=== PATIENT | male | born 1935 | race Caucasian/White ===

== ENCOUNTER → 2018-12-24 | Outpatient (CLI) | payer MEDICARE, OTHER ==
[~2018-12-24] VITALS: Ht 188 cm; Wt 86.0 kg
[~2018-12-24] MED LIST: ANTIVERT 12.512.5 MG PO; ASPIRIN 81M81 MG/TA2 PO; FLONASE NASAL S16 GM NS; GLUCOPHAGE500 MG/TAB PO; HCTZ; IBUPROFEN400 MG PO; LEVOTHYROXIN0.075 MG PO; OCUVITE1 TA1 PO; SINGULAIR10 MG PO; STRESS B COMPLEX; ZESTRIL 10MG10 MG PO
[2018-12-24 09:32] VITALS: BP 157/90; PULSE 74
[2018-12-24 10:18] VITALS: BP 154/76; PULSE 62
--- NOTE | 2018-12-24 10:30 | NUR ---
Discharge instructions gone over with pt. Verbalized understanding of instructions. Copy of instructions given to pt. Pt denies pain at this time. 1040 Pt out to car per wheelchair. Pt able to walk without difficulty. Pt up and into car without assistance.
== END ==
LOC: COL.RAD 08:41
DX: M51.36 Other intervertebral disc degeneration, lumbar region (principal)
CPT/HCPCS: J3301

== ENCOUNTER → 2019-02-25 | Outpatient (CLI) | payer MEDICARE, OTHER ==
[~2019-02-25] VITALS: Ht 188 cm; Wt 85.2 kg
[~2019-02-25] MED LIST changes: +FLEXERIL 1010 MG/TAB PO; +KLONOPIN 1MG1 MG PO; +PREDNISONE10 MG PO; +PREVACID 30MG30 M1 PO; +ULTRAM 50MG TAB50 MG PO
[2019-02-25 07:25] VITALS: BP 154/82; PULSE 92
[2019-02-25 08:14] VITALS: BP 154/80; PULSE 68
--- NOTE | 2019-02-25 08:30 | NUR ---
PT TAKEN TO FRONT LOBBY IN WHEELCHAIR AND THEN OUT TO THE CAR. DRIVES HOME
== END ==
LOC: COL.RAD 06:53
DX: M51.16 Intervertebral disc disorders with radiculopathy, lumbar region (principal)
CPT/HCPCS: J3301

== ENCOUNTER → 2022-01-31 | Outpatient (CLI) | payer MEDICARE, OTHER ==
[~2022-01-31] MED LIST changes: +ADVIL200 MG PO; +ARTIFICIAL TEAR15 M7 OP; +COREG 6.256.25 MG/TA PO; -IBUPROFEN400 MG PO; +LIPITOR 40MG TA40 MG PO; +MICARDIS40 MG PO; +MULTIPLE VITAMI1 TA1 PO; +PLAVIX 75MG TAB75 MG PO; -STRESS B COMPLEX; +STRESS B COMPLEX PO; +SYNTHROID0.075 MG/T PO; +VITAMIN D250 MCG PO
== END ==
LOC: COL.RAD 13:40
DX: I65.23 Occlusion and stenosis of bilateral carotid arteries (principal)
CPT/HCPCS: Q9967

== ENCOUNTER 2022-02-01 14:07 | Observation (INO) | payer MEDICARE, OTHER ==
[~2022-02-01] VITALS: Ht 188 cm; Wt 85.6 kg
[~2022-02-01 14:07] MED LIST changes: -ARTIFICIAL TEAR15 M7 OP; -COREG 6.256.25 MG/TA PO; -LIPITOR 40MG TA40 MG PO; -MICARDIS40 MG PO; -MULTIPLE VITAMI1 TA1 PO; -PLAVIX 75MG TAB75 MG PO; -SYNTHROID0.075 MG/T PO; -VITAMIN D250 MCG PO
[2022-02-01 14:35] LABS: BASO # 0.1 K/mm3 (0.0-0.2); BASO % 0.7 % (0.0-2.0); EOS # 0.5 K/mm3 (0.0-0.7); EOS % 3.9 % (0.0-4.0); GRAN # 9.8 K/mm3 (1.4-6.5); GRAN % 80.8 % (42.2-75.2); HEMATOCRIT 44.4 % (42.0-52.0); HEMOGLOBIN 15.1 g/dl (13.5-18.0); LYMPH # 0.9 K/mm3 (1.2-3.4); LYMPH % 7.7 % (20.0-51.0); MEAN CELL VOLUME 88 fl (80.0-100.0); MEAN CORPUSCULAR HEMOGLOBIN 30 pg (27-31); MEAN CORPUSCULAR HGB CONC 34 g/dl (33.0-37.0); MEAN PLATELET VOLUME 10.4 fl (7.4-10.4); MONO # 0.8 K/mm3 (0.1-0.6); MONO % 6.4 % (1.7-9.3); PLATELET COUNT 239 K/mm3 (130-400); RED BLOOD COUNT 5.02 M/mm3 (4.20-5.60); REDCELL DISTRIBUTION WIDTH-CV 12.7 % (11.5-14.5)
[2022-02-01 14:56] LABS: ALBUMIN 3.7 gm/dL (3.4-4.8); ANION GAP 13 mmol/L (7-16); BLOOD UREA NITROGEN 20 mg/dL (8-26); CARBON DIOXIDE 22 mmol/L (23-31); CHLORIDE 104 mmol/L (98-107); CREATININE, serum 1.11 mg/dL (0.72-1.25); GLUCOSE 187 mg/dL (70-99); PHOSPHOROUS 2.5 mg/dL (2.3-4.7); SODIUM 139 mmol/L (136-145)
[2022-02-01 15:14] LABS: TROPONIN-I < 0.010 ng/mL (0.00-0.033)
[2022-02-01] MEDS ORDERED: ARTIFICIAL TEAR15 M7 OP (19:26)
[2022-02-01] MEDS ORDERED: SYNTHROID0.075 MG/T PO (19:29)
[2022-02-01] MEDS ORDERED: MULTIPLE VITAMI1 TA1 PO (19:31)
[2022-02-01] MEDS ORDERED: MICARDIS40 MG PO (19:32)
[2022-02-01 19:40] LABS: PARTIAL THROMBOPLASTIN TIME 27.7 SECONDS (26.0-37.0)
[2022-02-01 22:00] VITALS: BP 150/76; PULSE 76; TEMP 99.3
--- NOTE | 2022-02-01 22:22 | NUR ---
Patient arrived to medical unit from ER at shift change. This nurse assessed patient at approximately 1915. Alert and oriented x 4, and able to make needs known. Denies having pain and discomfort at this time. Peripheral INT to right AC. Started Heparin drip per orders. Dr. Suero notified of consult and saw patient. Plan for MRI on Friday. Patient voices no questions, needs, or concerns at this time. In bed with call light within reach.
[2022-02-02] VITALS (7 sets, daily range): BP systolic 124–163; BP diastolic 53–67; PULSE 59–71; TEMP 97.2–98.4
--- NOTE | 2022-02-02 05:51 | NUR ---
Continues on Heparin drip per orders. 0200 HepXa was goal. Recheck to be done at 0800. Denies pain and discomfort at this time. Voices no questions, needs, or concerns at this time. In bed with call light within reach.
--- NOTE | 2022-02-02 08:00 | NUR ---
Patient is resting in bed, alert and oriented x 4, with HTN. No chest pain. Telemetry in place, NSR. Hep gtt at 10 ml/hr. Assessment completed, meds provided. No other needs at this time. Call light within reach.
[2022-02-02 08:09] LABS: BASO # 0.1 K/mm3 (0.0-0.2); BASO % 1.1 % (0.0-2.0); EOS # 0.6 K/mm3 (0.0-0.7); HEMATOCRIT 45.4 % (42.0-52.0); HEMOGLOBIN 15.3 g/dl (13.5-18.0); LYMPH % 10.4 % (20.0-51.0); MEAN CELL VOLUME 89 fl (80.0-100.0); MEAN CORPUSCULAR HEMOGLOBIN 30 pg (27-31); MEAN CORPUSCULAR HGB CONC 34 g/dl (33.0-37.0); MEAN PLATELET VOLUME 10.3 fl (7.4-10.4); MONO # 0.8 K/mm3 (0.1-0.6); MONO % 8.2 % (1.7-9.3); PLATELET COUNT 233 K/mm3 (130-400); RED BLOOD COUNT 5.13 M/mm3 (4.20-5.60); REDCELL DISTRIBUTION WIDTH-CV 12.8 % (11.5-14.5)
--- NOTE | 2022-02-02 08:19 | NUR ---
2ND GOAL FOR HEP GTT, no changes, next draw 02/03/22 6053
[2022-02-02 08:25] LABS: ALBUMIN 3.7 gm/dL (3.4-4.8); CALCIUM 9.3 mg/dL (8.4-10.2); CREATININE, serum 1.14 mg/dL (0.72-1.25); MAGNESIUM 2.2 mg/dL (1.6-2.6); PHOSPHOROUS 2.9 mg/dL (2.3-4.7); POTASSIUM 3.9 mmol/L (3.5-4.5)
--- NOTE | 2022-02-02 14:52 | NUR ---
door worker met with patient to complete intake and discuss discharge plan. Patient states that he lives at home with his Marquita ([phone]) in [place]. He is independent with his ADL's and will utilize a walker when outside in the yard or a cane when he goes to the store. Patient's PCP is and he utilizes [facility] for prescriptions. Patient states that he does have a [facility] established listing his Mraquita. Patient is scheduled for a heart cath on Friday, but is planning on returning home once medically ready. Discharge plan: Home
--- NOTE | 2022-02-02 18:26 | NUR ---
Patient has been stable along the day, continues with same rate hep gtt. No chest pain. Report will be given to night RN.
--- NOTE | 2022-02-02 22:08 | NUR ---
Patient assessed around 1954. Alert and oriented, and able to make needs known. Reported some disocmfort to BLE, new order received for PRN Motrin as requested, but patient declines medication at this time. Denies SOB and dyspnea. Denies dizziness today. Denies numbness/tingling to right side of body. Denies chest pain and discomfort. Continues on Heparin drip per orders. Recheck HepXa in the morning per protocol. Voices no questions, needs, or concerns at this time. In bed with call light within reach.
[2022-02-03 03:11] VITALS: BP 147/60; PULSE 60; TEMP 97.8
--- NOTE | 2022-02-03 06:13 | NUR ---
Patient continues on Heparin drip per orders. Voices no questions, needs, or concerns at this time. In bed with call light within reach.
[2022-02-03 06:43] LABS: BASO # 0.1 K/mm3 (0.0-0.2); BASO % 0.9 % (0.0-2.0); EOS # 0.6 K/mm3 (0.0-0.7); EOS % 6.6 % (0.0-4.0); GRAN # 5.9 K/mm3 (1.4-6.5); GRAN % 69.2 % (42.2-75.2); HEMATOCRIT 44.5 % (42.0-52.0); HEMOGLOBIN 15.2 g/dl (13.5-18.0); LYMPH # 1.3 K/mm3 (1.2-3.4); LYMPH % 15.5 % (20.0-51.0); MEAN CELL VOLUME 88 fl (80.0-100.0); MEAN CORPUSCULAR HEMOGLOBIN 30 pg (27-31); MEAN CORPUSCULAR HGB CONC 34 g/dl (33.0-37.0); MONO # 0.6 K/mm3 (0.1-0.6); MONO % 7.3 % (1.7-9.3); PLATELET COUNT 232 K/mm3 (130-400); RED BLOOD COUNT 5.07 M/mm3 (4.20-5.60); REDCELL DISTRIBUTION WIDTH-CV 12.8 % (11.5-14.5)
[2022-02-03 06:57] LABS: ALBUMIN 3.6 gm/dL (3.4-4.8); CALCIUM 9.4 mg/dL (8.4-10.2); CREATININE, serum 1.19 mg/dL (0.72-1.25); MAGNESIUM 2.3 mg/dL (1.6-2.6); PHOSPHOROUS 3.2 mg/dL (2.3-4.7); POTASSIUM 4.4 mmol/L (3.5-4.5)
[2022-02-03 07:00] VITALS: BP 166/59; PULSE 60; TEMP 98
--- NOTE | 2022-02-03 07:58 | NUR ---
PT SLEEPING DURING BEDSIDE REPORT.
[2022-02-03 12:00] VITALS: BP 134/58; PULSE 62
[2022-02-03 16:00] VITALS: BP 139/62; PULSE 56
--- NOTE | 2022-02-03 19:00 | NUR ---
Report rcvd from day shift RN. The patient is laying in bed, denies any needs. No chest pain since the ED. Pt scheduled to have multiple tests tomorrow. Assessment to follow. No other concerns.
[2022-02-03 19:46] VITALS: BP 139/66; PULSE 58; TEMP 97.6
[2022-02-03] MEDS ORDERED: VITAMIN D250 MCG PO (21:18)
[2022-02-03 23:55] VITALS: BP 151/55; PULSE 59; TEMP 98
[2022-02-04] VITALS (10 sets, daily range): BP systolic 126–167; BP diastolic 57–81; PULSE 62–91; TEMP 97.6–97.9
[2022-02-04 06:32] LABS: BASO # 0.1 K/mm3 (0.0-0.2); BASO % 0.6 % (0.0-2.0); EOS # 0.5 K/mm3 (0.0-0.7); EOS % 4.7 % (0.0-4.0); GRAN # 7.1 K/mm3 (1.4-6.5); HEMATOCRIT 44.3 % (42.0-52.0); HEMOGLOBIN 15.2 g/dl (13.5-18.0); LYMPH # 1.4 K/mm3 (1.2-3.4); LYMPH % 14.2 % (20.0-51.0); MEAN CELL VOLUME 88 fl (80.0-100.0); MEAN CORPUSCULAR HEMOGLOBIN 30 pg (27-31); MEAN CORPUSCULAR HGB CONC 34 g/dl (33.0-37.0); MEAN PLATELET VOLUME 11.1 fl (7.4-10.4); MONO # 0.7 K/mm3 (0.1-0.6); MONO % 7.1 % (1.7-9.3); PLATELET COUNT 257 K/mm3 (130-400); RED BLOOD COUNT 5.04 M/mm3 (4.20-5.60); REDCELL DISTRIBUTION WIDTH-CV 12.8 % (11.5-14.5)
--- NOTE | 2022-02-04 07:00 | NUR ---
The patient had uneventful shift. States he had a difficult night sleeping due to anxiety with upcoming procedures for the day. No other concerns. Report given to RAVIN Wilson.
[2022-02-04 07:12] LABS: ALBUMIN 3.5 gm/dL (3.4-4.8); CALCIUM 9.1 mg/dL (8.4-10.2); CREATININE, serum 1.06 mg/dL (0.72-1.25); MAGNESIUM 2.1 mg/dL (1.6-2.6); PHOSPHOROUS 3.4 mg/dL (2.3-4.7)
--- NOTE | 2022-02-04 14:40 | NUR ---
Heparin gtt DCd per verbal orders from Dr. Luz.
[2022-02-04] MEDS ORDERED: LIPITOR 40MG TA40 MG PO (17:21)
[2022-02-04] MEDS ORDERED: PLAVIX 75MG TAB75 MG PO (17:21)
[2022-02-04] MEDS ORDERED: COREG 6.256.25 MG/TA PO (17:23)
--- NOTE | 2022-02-04 20:21 | NUR ---
Patient deemed fit for discharge. IV DC'd, catheter intact, no signs of phlebitis. Discharge instructions/education given. All questions answered. Patient denies any pain, discomfort, SOA, or further needs at this time. Patient escorted from building via wheelchair by [facility] Staff. Family transporting home.
== END 2022-02-04 20:24 | disposition home or self-care (01) ==
LOC: COL.ER 14:07 → MEDICAL 16:20
PROVIDERS: Emergency Medicine; ADMIT Internal Medicine
DX: R07.9 Chest pain, unspecified (principal); I65.23 Occlusion and stenosis of bilateral carotid arteries; I49.3 Ventricular premature depolarization; I10 Essential (primary) hypertension; E78.5 Hyperlipidemia, unspecified; E03.9 Hypothyroidism, unspecified; K21.9 Gastro-esophageal reflux disease without esophagitis; Z87.891 Personal history of nicotine dependence; I08.1 Rheumatic disorders of both mitral and tricuspid valves
CPT/HCPCS: 99223-AI; 99232-AI; A9500; G0378; J1644; J2270; J2785; Q9967

== ENCOUNTER 2022-02-09 11:18 | Emergency (ER) | payer MEDICARE, OTHER ==
[~2022-02-09] VITALS: Ht 188 cm; Wt 84.1 kg
[~2022-02-09 11:18] MED LIST changes: +ARTIFICIAL TEAR15 M7 OP; +COREG 6.256.25 MG/TA PO; +LIPITOR 40MG TA40 MG PO; +MICARDIS40 MG PO; +MULTIPLE VITAMI1 TA1 PO; +PLAVIX 75MG TAB75 MG PO; +SYNTHROID0.075 MG/T PO; +VITAMIN D250 MCG PO
[2022-02-09 11:31] VITALS: TEMP 97.7
[2022-02-09 11:46] LABS: BASO # 0.1 K/mm3 (0.0-0.2); BASO % 0.8 % (0.0-2.0); EOS # 0.3 K/mm3 (0.0-0.7); EOS % 2.7 % (0.0-4.0); GRAN % 70.7 % (42.2-75.2); HEMATOCRIT 45.9 % (42.0-52.0); HEMOGLOBIN 15.2 g/dl (13.5-18.0); LYMPH # 1.8 K/mm3 (1.2-3.4); LYMPH % 18.3 % (20.0-51.0); MEAN CELL VOLUME 90 fl (80.0-100.0); MEAN CORPUSCULAR HEMOGLOBIN 30 pg (27-31); MEAN CORPUSCULAR HGB CONC 33 g/dl (33.0-37.0); MEAN PLATELET VOLUME 10.6 fl (7.4-10.4); MONO # 0.7 K/mm3 (0.1-0.6); PLATELET COUNT 270 K/mm3 (130-400); RED BLOOD COUNT 5.08 M/mm3 (4.20-5.60); REDCELL DISTRIBUTION WIDTH-CV 12.6 % (11.5-14.5)
[2022-02-09 11:58] LABS: INR 1.1 (0.8-3.0); PROTHROMBIN TIME 12.9 SECONDS (9.7-12.8)
[2022-02-09 12:04] LABS: BILIRUBIN,TOTAL 3.7 mg/dL (0.2-1.2); CALCIUM 9.5 mg/dL (8.4-10.2); CREATININE, serum 1.17 mg/dL (0.72-1.25); POTASSIUM 4.5 mmol/L (3.5-4.5); TOTAL PROTEIN 6.9 gm/dL (6.2-8.1)
[2022-02-09 12:30] VITALS: BP 132/68; PULSE 55
== END 2022-02-09 12:30 | disposition home or self-care (01) ==
LOC: COL.ER 11:18
PROVIDERS: Nurse Practitioner Primary Care
DX: I65.23 Occlusion and stenosis of bilateral carotid arteries (principal)